=== PATIENT | male | born 1980 | race Asian ===

== ENCOUNTER 2018-09-30 21:51 | Emergency (ER) | payer OTHER, MEDICAID ==
[~2018-09-30] VITALS: Ht 177.8 cm; Wt 56.6 kg
[2018-10-01] MEDS ORDERED: morphine 4 MG/ML inj SYRINge IV PRN
[2018-10-01] MEDS ORDERED: ondansetron/PF 4mg/2ml inj IV ONE
[2018-10-01] MEDS ORDERED: normal saline 1000ML IV soln IVB ONE
[2018-10-01 00:25] LABS: BASOPHILS # (AUTO) 0.1 X10'3 (0-0.2); BASOPHILS % (AUTO) 1.3 % (0-1); EOSINOPHILS % (AUTO) 0 % (0-6); HEMATOCRIT 47.7 % (42.0-52.0); HEMOGLOBIN 16.3 g/dl (14.0-17.9); LYMPHOCYTES # (AUTO) 0.5 X10'3 (1.1-4.8); LYMPHOCYTES % (AUTO) 5.3 % (21-51); MEAN CORPUSCULAR HEMOGLOBIN 29.2 PG (27.0-31.0); MEAN CORPUSCULAR HGB CONC 34.1 g/dL (33.0-36.5); MEAN CORPUSCULAR VOLUME 85.6 FL (78-98); MEAN PLATELET VOLUME 7.4 FL (7.4-10.4); MONOCYTES # (AUTO) 0.8 X10'3 (0-0.9); MONOCYTES % (AUTO) 8.2 % (2-12); NEUTROPHILS # (AUTO) 8.4 X10'3 (1.8-7.7); NEUTROPHILS % (AUTO) 85.2 % (42-75); PLATELET COUNT 205 X10'3 (140-440); RED BLOOD COUNT 5.57 X10'6 (4.70-6.10); RED CELL DISTRIBUTION WIDTH 12.3 % (11.5-14.5); WHITE BLOOD COUNT 9.8 X10'3 (4.5-11.0)
[2018-10-01 00:35] LABS: ALANINE AMINOTRANSFERASE 31 U/L (12-78); ALBUMIN 3.8 G/DL (3.4-5.0); ALBUMIN/GLOBULIN RATIO 0.8 (1.1-1.5); ALKALINE PHOSPHATASE 100 IU/L (46-116); ANION GAP 10 (8-16); ASPARTATE AMINO TRANSFERASE 21 U/L (10-37); BILIRUBIN,TOTAL 0.6 MG/DL (0.1-1.0); BLOOD UREA NITROGEN 14 MG/DL (7-18); BUN/CREATININE RATIO 15.1 (5.4-32.0); CALCIUM 9.4 MG/DL (8.5-10.1); CHLORIDE 102 MMOL/L (99-107); CREATININE 0.93 MG/DL (0.60-1.10); GLUCOSE 121 MG/DL (70-104); LIPASE 90 U/L (73-393); SODIUM 137 MMOL/L (135-145); TOTAL CARBON DIOXIDE 25.4 MMOL/L (24-32); TOTAL PROTEIN 8.5 G/DL (6.4-8.2); eGFR > 90 ML/MIN
[2018-10-01 01:58] LABS: CLARITY,URINE SLIGHTLY CLOUDY (Clear); COLOR,URINE YELLOW (Yellow); GLUCOSE, URINE NEGATIVE (Neg); KETONES,URINE TRACE mg/dl (Neg); LEUKOCYTE ESTERASE ,URINE NEGATIVE (Neg); NITRITES, URINE NEGATIVE (Neg); OCCULT BLOOD,URINE NEGATIVE (Neg); PROTEIN,URINE TRACE mg/dl (Neg)
[2018-10-01 01:59] LABS: UA COLLECTION TYPE CLN CATCH MIDSTREAM
[2018-10-01 02:07] LABS: AMORPHOUS PHOSPHATES 2+; BACTERIA,URINE NONE SEEN /HPF (Neg); MUCUS STRANDS MODERATE /LPF (Neg); RBC,URINE 0-2 /HPF (0-2); SQUAMOUS EPITHELIAL CELL,UR FEW /LPF (FEW); WBC,URINE 0-4 /HPF (0-4)
[2018-10-01] MEDS ORDERED: ketorolac trometh. 30mg/ml inj. IV ONE (02:10)
[2018-10-01 02:42] LABS: MONOTEST NEGATIVE (Neg)
[2018-10-01 02:46] LABS: PLATELET ESTIMATE NORMAL; TOTAL CELLS COUNTED 100
[2018-10-01] MEDS ORDERED: acetaminophen 325mg tablet PO ONE (03:20)
[2018-10-01 04:30] VITALS: BP 103/57
[2018-10-01] MEDS ORDERED: ondansetron 4mg rapidly disintigrating tab PO ONE ×2 (04:50)
--- NOTE | 2018-10-01 04:51 | NUR ---
attempted to walk pt out of er when he had to sit down due to "ringing." dr irving informed. he asked me to re-room the pt and to give zofran po
[2018-10-01] MEDS ORDERED: ONDA4TAB12 PO (05:24)
== END 2018-10-01 05:28 | disposition home or self-care (01) ==
LOC: ER 21:52
DX: R51 Headache (principal); R50.9 Fever, unspecified; M54.5 Low back pain
CPT/HCPCS: 36415; 70450; 80053; 81001; 83690; 85025; 86308; 87502; 87503; 96374; 96375; 99284; J1885; J2270; J2405; J7030